=== PATIENT | female | born 1960 | race Two or more races ===

== ENCOUNTER 2025-03-10 06:45 | Outpatient (CLI) | payer OTHER ==
[2025-03-10 07:40] LABS: Urine Protein, UAD Negative (Negative)
[2025-03-10 07:46] LABS: Hematocrit 38.2 % (36.0-46.0); Hemoglobin 12.6 g/dL (12.2-16.2); Mean Corpuscular Hemoglobin 27.3 pg (28.0-32.0); Mean Corpuscular Volume 82.5 fL (80.0-100.0); Nucleated Red Blood Cells % 0.1 %
[2025-03-10 08:42] LABS: Alanine Aminotransferase 19 U/L (7-40); Albumin 4.3 g/dL (3.2-4.8); Alkaline Phosphatase 69 U/L (46-116); Anion Gap 9 (5-15); BUN/Creatinine Ratio 24.4 (10.0-20.0); Blood Urea Nitrogen 22 mg/dL (9-23); Calcium 10.0 mg/dL (8.7-10.4); Carbon Dioxide 27 mmol/L (20-31); Chloride 104 mmol/L (98-107); Glucose 92 mg/dL (74-106); Potassium 4.2 mmol/L (3.5-5.1); Sodium 140 mmol/L (136-145); Total Protein 7.1 g/dL (5.7-8.2); Triglycerides 77 mg/dL (< 150)
[2025-03-10 08:43] LABS: Bilirubin, Total 0.5 mg/dL (0.2-1.0); Cholesterol 149 mg/dL (< 200)
[2025-03-10 08:44] LABS: HDL Cholesterol 80 mg/dL (40-59)
[2025-03-11 08:07] LABS: Free Thyroxine Index 2.4 (1.2-4.9)
== END 2025-03-10 17:00 | disposition home or self-care (01) ==
LOC: LAB 06:45
PROVIDERS: ATTEND Internal Medicine
DX: I10 Essential (primary) hypertension (principal); E78.00 Pure hypercholesterolemia, unspecified; J45.998 Other asthma; R63.5 Abnormal weight gain
CPT/HCPCS: 36415; 80053; 80061; 81001; 84443; 85025; 87086